=== PATIENT | female | born 1955 | race Hispanic/Latino ===

== ENCOUNTER 2017-06-26 11:10 | Outpatient (CLI) | payer BC ==
--- NOTE | 2017-06-26 12:27 | RAD ---
TWO VIEW CHEST: Indication: Cough. FINDINGS: There is no evidence of consolidation, effusion, or pneumothorax. Cardiac silhouette is at upper limi ts of normal in size. No significant vascular congestion. Osseous structures are intact. IMPRESSION: No focal consolidation. POS: H
== END 2017-06-26 11:11 | disposition home or self-care (01) ==
LOC: RAD-FRANK 11:10
PROVIDERS: ATTEND Nurse Practitioner Family
DX: R05 Cough (principal)
CPT/HCPCS: 71046